=== PATIENT | male | born 1970 | race Caucasian/White ===

== ENCOUNTER → 2019-11-30 10:19 | Outpatient (CLI) | payer OTHER, SELFPAY ==
--- NOTE | 2019-11-30 | DI.RAD.S_ITS ---
PROCEDURE: XR FINGER RT MIN 2V INDICATIONS: Trama Rt index finger laceration TECHNIQUE: AP hand, 2 views of the right index finger(s) acquired. COMPARISON: [facility], , FINGER LT, 02/02/2015, 15:41. FINDINGS: Bones: No fractures or dislocations. No suspicious bony lesions. Soft tissues: Soft tissue swelling and defect overlying the distal, ulnar side of the right index finger. There are small radiopaque densities in the expected location of the fingernail. Otherwise, no other radiopaque soft tissue foreign bodies in the distal right index finger. There is a punctate radiopaque soft tissue density projecting over the ulnar side of the distal right middle finger middle phalanx No suspicious soft tissue calcifications. IMPRESSION: Distal right index finger soft tissue laceration without underlying fracture or dislocation. Tiny flecks of radiopaque foreign bodies noted in the expected location of the fingernail. Dictated by: Henrik Church M.D. on 11/30/2019 at 11:20 Approved by: Henrik Church M.D. on 11/30/2019 at 11:22
== END ==
PROVIDERS: Referring Provider Family Medicine; Visit Provider Family Medicine
DX: S61.220A Laceration with foreign body of right index finger without damage to nail, initial encounter (principal); X58.XXXA Exposure to other specified factors, initial encounter
CPT/HCPCS: 73140